=== PATIENT | female | born 1970 | race Caucasian/White ===

== ENCOUNTER 2017-01-17 14:04 | Emergency (ER) | payer OTHER ==
[2017-01-17 14:12] VITALS: BP 114/74; PULSE 93; RESP 20; TEMP 97.8; O2SAT 99
[2017-01-17] MEDS ORDERED: Naproxen 550 mg Tab PO STA (14:39)
[2017-01-17] MEDS ORDERED: Naproxen 550 mg Tab PO ONE (14:48)
--- NOTE | 2017-01-17 15:08 | RAD ---
PROCEDURE: Right Knee Radiographs. HISTORY: RIGHT KNEE PAIN COMPARISON: Comparison is made to 08/04/2016 FINDINGS: BONES: No evidence of acute infarction JOINTS: Mild osteoarthritic changes JOINT EFFUSION: None. OTHER FINDINGS: None. IMPRESSION: No evidence of acute fracture or dislocation.
--- NOTE | 2017-01-17 15:09 | C.PDOC ---
History Of Present Illness 46 yr old female presents to the ER with complaints of right knee pain for the past several weeks. Patient states the pain is made worse with walking. Patient reports she was seen by PMD and was prescribed Naproxen and Flexeril. Patient denies fever, calf pain, rash, weakness or numbness. Time Seen by Provider: 01/17/17 14:11 Chief Complaint (Nursing): Lower Extremity Problem/Injury History Per: Patient History/Exam Limitations: no limitations Onset/Duration Of Symptoms: Days (Several weeks) Past Medical History Reviewed: Historical Data, Nursing Documentation, Vital Signs Vital Signs: Last Vital Signs Temp 97.8 F 01/17/17 14:11 Pulse 93 H 01/17/17 14:11 Resp 20 01/17/17 14:11 BP 114/74 01/17/17 14:11 Pulse Ox 99 01/17/17 15:11 Family History: States: No Known Family Hx - Social History Hx Alcohol Use: No Hx Substance Use: No Review Of Systems Except As Marked, All Systems Reviewed And Found Negative. Constitutional: Negative for: Fever Musculoskeletal: Positive for: Other ((+) Right knee pain) Skin: Negative for: Rash Neurological: Negative for: Weakness, Numbness Physical Exam - Physical Exam Appears: Non-toxic, No Acute Distress Skin: Warm, Dry, No Rash Head: Atraumatic, Normacephalic Cardiovascular: Rhythm Regular, No Murmur Respiratory: Normal Breath Sounds, No Rales, No Rhonchi, No Stridor, No Wheezing Extremity: Normal ROM, No Calf Tenderness, Swelling (Right knee mild swelling around the patella) Neurological/Psych: Oriented x3, Normal Speech, Normal Motor, Normal Sensation Gait: Steady ED Course And Treatment O2 Sat by Pulse Oximetry: 99 (RA) Pulse Ox Interpretation: Normal - Other Rad X-Ray - Right Knee X-Ray: Viewed By Me, Read By Radiologist Interpretation: PROCEDURE: Right Knee Radiographs. HISTORY: RIGHT KNEE PAIN. COMPARISON: Comparison is made to 08/04/2016. FINDINGS: BONES: No evidence of acute infarction. JOINTS: Mild osteoarthritic changes. JOINT EFFUSION: None. OTHER FINDINGS: None. IMPRESSION: No evidence of acute fracture or dislocation. Progress Note: PLAN: X-Ray - Right Knee & Naproxen PO. Jude wrap was applied by library acquisitions technician. Crutches were also ordered but patient refused. Disposition Counseled Patient/Family Regarding: Studies Performed, Diagnosis, Need For Followup, Rx Given - Disposition Referrals: [facility] [Outside] [facility] [Outside] Jhon Arnold III, MD [Staff Provider] - Disposition: HOME/ ROUTINE Disposition Time: 15:10 Condition: STABLE Additional Instructions: FOLLOW UP WITH [facility] 1 WEEK USE MEDICATIONS FOR PAIN GIVEN TO YOU BY YOUR DOCTOR RETURN TO ER IF SYMPTOMS WORSEN Instructions: Knee Sprain (ED), Osteoarthritis (ED) Forms: [employer] (Divehi) Print Language: MONGOLIAN - POA Present On Arrival: None - Clinical Impression Clinical Impression: Right knee sprain, Osteoarthritis, knee - Scribe Statement The provider has reviewed the documentation as recorded by the Bob Abrams Provider Attestation: All medical record entries made by the Gabrieliblyudmila were at my direction and personally dictated by me. I have reviewed the chart and agree that the record accurately reflects my personal performance of the history, physical exam, medical decision making, and the department course for this patient. I have also personally directed, reviewed, and agree with the discharge instructions and disposition.
== END 2017-01-17 16:09 | disposition home or self-care (01) ==
LOC: C.ER 14:04
DX: S83.91XA Sprain of unspecified site of right knee, initial encounter (principal); X58.XXXA Exposure to other specified factors, initial encounter; M17.11 Unilateral primary osteoarthritis, right knee